=== PATIENT | female | born 1980 | race American Indian/Alaskan Native ===

== ENCOUNTER 2016-08-01 18:04 | Emergency (ER) | payer SELFPAY ==
[2016-08-01 19:50] VITALS: BP 147/91
[2016-08-01 20:32] LABS: Bilirubin,Urine NEG (Negative); Blood,Urine LG (Negative); Ketones,Urine NEG (Negative); Leukocyte Esterase,Urine SM (Negative); Mucus,Urine FEW /HPF; Nitrite,Urine NEG (Negative); Protein,Urine <15 mg/dL mg/dL (Negative); Urobilinogen,Urine < 2.0 mg/dL (<2.0)
[2016-08-01 22:21] LABS: Basophils % (Auto) 0.3 % (0.0-1.8); Eosinophils % (Auto) 0.5 % (0.0-4.3); Mean Corpuscular HGB Conc 29 % (30-34); Platelet Count 326 K/mm3 (140-440); Red Blood Count 5.34 M/mm3 (3.65-5.03); Red Cell Distribution Width 19.6 % (13.2-15.2); White Blood Count 5.9 K/mm3 (4.5-11.0)
[2016-08-01 22:23] LABS: Hematocrit 34.2 % (30.3-42.9); Mean Corpuscular Hemoglobin 19 pg (28-32); Mean Corpuscular Volume 64 fl (79-97)
[2016-08-01 22:43] LABS: Alanine Aminotransferase 8 units/L (7-56); Albumin 3.9 g/dL (3.9-5); Alkaline Phosphatase 44 units/L (35-129); Anion Gap 16 mmol/L; Bilirubin,Total 0.3 mg/dL (0.1-1.2); Blood Urea Nitrogen 9 mg/dL (7-17); Calcium 8.7 mg/dL (8.4-10.2); Carbon Dioxide 27 mmol/L (22-30); Chloride 95.7 mmol/L (98-107); Glucose 297 mg/dL (65-100); Lipase 19 units/L (13-60); Potassium 3.5 mmol/L (3.6-5.0); Sodium 135 mmol/L (137-145); Total Protein 7.8 g/dL (6.3-8.2)
== END 2016-08-01 23:40 | disposition left against medical advice (07) ==
LOC: ED 18:04
DX: O20.9 Hemorrhage in early pregnancy, unspecified (principal); O21.9 Vomiting of pregnancy, unspecified; R11.0 Nausea; J45.909 Unspecified asthma, uncomplicated; E11.9 Type 2 diabetes mellitus without complications; D64.9 Anemia, unspecified; Z3A.08 8 weeks gestation of pregnancy; Z53.21 Procedure and treatment not carried out due to patient leaving prior to being seen by health care provider
CPT/HCPCS: 36415; 80053; 81001; 82962; 83690; 84703; 85025

== ENCOUNTER 2017-06-19 23:50 | Emergency (ER) | payer SELFPAY ==
[2017-06-20 04:53] LABS: Bilirubin,Urine NEG (Negative); Blood,Urine NEG (Negative); Color,Urine Red (Yellow); Mucus,Urine FEW /HPF; Nitrite,Urine NEG (Negative); Protein,Urine <15 mg/dL mg/dL (Negative); Urobilinogen,Urine < 2.0 mg/dL (<2.0)
[2017-06-20 05:03] LABS: HCG Qualitative,Urine Negative (Negative)
[2017-06-20] MEDS ORDERED: FIORICET PO ONE (06:13)
--- NOTE | 2017-06-20 06:18 | Emergency Department Report ---
Chief Complaint: Headache Stated Complaint: KNOT ON SCALP; H/A Time Seen by Provider: 06/20/17 06:13 - HPI History of Present Illness: The [id number] female with no prior medical history presents to ED stating that she noticed not on the top of her head doesn't cause in her headaches for the past 3 days. She denies any trauma or injuries to the head. - ROS Review of Systems: As noted in HPI - Exam Vital Signs: Vital Signs 06/20/17 01:29 Temperature 98.7 F Pulse Rate 89 Blood Pressure 152/61 O2 Sat by Pulse 98 Oximetry Physical Exam: GENERAL: Alert and oriented x3, no apparent distress, Normal Gait, atraumatic. HEAD: Head is normocephalic and a-traumatic. tender mass non flactulant, non erythematous mass on the top of head on scalp. MSE screening note: Focused history and physical exam performed. Due to findings the following was ordered: ED Medical Decision Making - Medical Decision Making 37-year-old female stable, he is in no distress has no neurologic deficit CT of the head ordered. One tablet of Fioricet ordered Patient will be seen by all coming fast track provider. ED Disposition for MSE Condition: Stable Referrals: JO JOHNSON MD [Primary Care Provider] - 3-5 Days
--- NOTE | 2017-06-20 06:41 | Cat Scan Report ---
FINAL REPORT EXAM: CT HEAD/BRAIN WO CON HISTORY: scalp contusion TECHNIQUE: CT imaging acquired through the head without intravenous contrast. Transaxial reformations are provided. PRIORS: None. FINDINGS: The ventricles, cisterns and sulci are normal. No intraparenchymal or extra-axial mass, hemorrhage, or mass effect. Moreira and white-matter differentiation is normal. Normal spherical shape of the globes. Paranasal sinuses and mastoid air cells are clear. No skull or facial fracture visualized. IMPRESSION: No acute intracranial abnormality.
--- NOTE | 2017-06-20 07:32 | Emergency Department Report ---
- General Chief complaint: Headache Stated complaint: KNOT ON SCALP; H/A Time Seen by Provider: 06/20/17 06:13 Source: patient Mode of arrival: Ambulatory Limitations: No Limitations - History of Present Illness Initial comments: 37-year-old female presents with complaint of 3 days of lump on the top of her scalp. Patient denies any trauma to head. Denies any fevers or chills. States her lymph nodes may be swollen on her left posterior auricular region. States she has a palpable lump on the top of her scalp underneath her hair. Denies any other complaints. Patient was screened by mid-level provider complaint: abscess/boil Onset/Timin -: days(s) Location: head Severity: moderate Severity scale (0 -10): 4 Quality: aching Improves with: none Worsens with: none Context: none Treatments Prior to Arrival: none - Related Data Previous Rx's Medication Instructions Recorded Last Taken Type Ferrous Gluconate [Fergon 325 MG 325 mg PO TID #20 tablet 01/12/16 Unknown Rx tab] metFORMIN [Glucophage] 500 mg PO BID #60 tablet 01/12/16 Unknown Rx Cephalexin [Keflex] 500 mg PO Q12HR #14 cap 06/20/17 Unknown Rx Ibuprofen [Motrin] 800 mg PO Q8HR PRN #30 tablet 06/20/17 Unknown Rx Sulfamethoxazole/Trimethoprim 1 each PO BID #14 tablet 06/20/17 Unknown Rx [Bactrim DS TAB] Allergies Allergy/AdvReac Type Severity Reaction Status Date / Time No Known Allergies Allergy Verified 06/29/16 11:17 Abscess Boil HPI - HPI Chief Complaint: Headache Stated Complaint: KNOT ON SCALP; H/A Time Seen by Provider: 06/20/17 06:13 Home Medications: Previous Rx's Medication Instructions Recorded Last Taken Type Ferrous Gluconate [Fergon 325 MG 325 mg PO TID #20 tablet 01/12/16 Unknown Rx tab] metFORMIN [Glucophage] 500 mg PO BID #60 tablet 01/12/16 Unknown Rx Cephalexin [Keflex] 500 mg PO Q12HR #14 cap 06/20/17 Unknown Rx Ibuprofen [Motrin] 800 mg PO Q8HR PRN #30 tablet 06/20/17 Unknown Rx Sulfamethoxazole/Trimethoprim 1 each PO BID #14 tablet 06/20/17 Unknown Rx [Bactrim DS TAB] Allergies/Adverse Reactions: Allergies Allergy/AdvReac Type Severity Reaction Status Date / Time No Known Allergies Allergy Verified 06/29/16 11:17 ED Review of Systems ROS: Stated complaint: KNOT ON SCALP; H/A Other details as noted in HPI Constitutional: denies: chills, fever Eyes: denies: eye pain, eye discharge, vision change ENT: denies: ear pain, throat pain Respiratory: denies: cough, shortness of breath, wheezing Cardiovascular: denies: chest pain, palpitations Endocrine: no symptoms reported Gastrointestinal: denies: abdominal pain, nausea, diarrhea Genitourinary: denies: urgency, dysuria, discharge Musculoskeletal: denies: back pain, joint swelling, arthralgia Skin: as per HPI. denies: rash, lesions Neurological: denies: headache, weakness, paresthesias Psychiatric: denies: anxiety, depression Hematological/Lymphatic: denies: easy bleeding, easy bruising ED Past Medical Hx - Past Medical History Hx Diabetes: Yes (TYPE 2) Hx Asthma: Yes Additional medical history: ANEMIA. NEUROPATHY - Surgical History Past Surgical History?: No - Social History Smoking Status: Never Smoker Substance Use Type: None - Medications Home Medications: Home Medications Medication Instructions Recorded Confirmed Last Taken Type Ferrous Gluconate [Fergon 325 MG 325 mg PO TID #20 tablet 01/12/16 06/29/16 Unknown Rx tab] metFORMIN [Glucophage] 500 mg PO BID #60 tablet 01/12/16 06/29/16 Unknown Rx Cephalexin [Keflex] 500 mg PO Q12HR #14 cap 06/20/17 Unknown Rx Ibuprofen [Motrin] 800 mg PO Q8HR PRN #30 tablet 06/20/17 Unknown Rx Sulfamethoxazole/Trimethoprim 1 each PO BID #14 tablet 06/20/17 Unknown Rx [Bactrim DS TAB] ED Physical Exam - General Limitations: No Limitations General appearance: alert, in no apparent distress - Head Head exam: Present: atraumatic, normocephalic - Expanded Head Exam Expanded Head exam: Present: other (small abscess/cyst) 1 - 1-2 cm palpable induration here no fluctuance - Eye Eye exam: Present: normal appearance, PERRL, EOMI - ENT ENT exam: Present: mucous membranes moist - Neck Neck exam: Present: normal inspection - Respiratory Respiratory exam: Present: normal lung sounds bilaterally. Absent: respiratory distress - Cardiovascular Cardiovascular Exam: Present: regular rate, normal rhythm. Absent: systolic murmur, diastolic murmur, rubs, gallop - GI/Abdominal GI/Abdominal exam: Present: soft, normal bowel sounds - Extremities Exam Extremities exam: Present: normal inspection - Back Exam Back exam: Present: normal inspection - Neurological Exam Neurological exam: Present: alert, oriented X3 - Psychiatric Psychiatric exam: Present: normal affect, normal mood - Skin Skin exam: Present: warm, dry, intact, normal color. Absent: rash ED Course Vital Signs 06/20/17 01:29 Temperature 98.7 F Pulse Rate 89 Blood Pressure 152/61 O2 Sat by Pulse 98 Oximetry ED Medical Decision Making - Medical Decision Making A/P: Scalp cyst/abscess 1-I discussed option of aspirating or incising and draining small 1-2 cm cystic/ perhaps early abscess structure. Patient declined stated she would rather try antibiotics and anti-inflammatories before attempting incision and drainage. As abscess is small and it has only been to 3 days since symptom onset this is a reasonable alternative. I specifically advised patient to return to the ED for fevers chills nausea vomiting worsened headache or enlargement of cystic/ abscess structure. 2-CT head performed by mid-level screen patient, unremarkable 3-Motrin when necessary, Bactrim and Keflex 7 day course Critical care attestation.: If time is entered above; I have spent that time in minutes in the direct care of this critically ill patient, excluding procedure time. ED Disposition Clinical Impression: Scalp abscess Disposition: DC-01 TO HOME OR SELFCARE Is pt being admited?: No Does the pt Need Aspirin: No Condition: Stable Instructions: Abscess (ED) Prescriptions: Cephalexin [Keflex] 500 mg PO Q12HR #14 cap Ibuprofen [Motrin] 800 mg PO Q8HR PRN #30 tablet PRN Reason: Pain Sulfamethoxazole/Trimethoprim [Bactrim DS TAB] 1 each PO BID #14 tablet Referrals: [facility] [Outside] - 3-5 Days [facility] [Outside] - 3-5 Days Forms: Accompanied Note, Work/School Release Form(ED) Time of Disposition: 07:33
[2017-06-20 07:54] VITALS: BP 119/75
== END 2017-06-20 07:52 | disposition home or self-care (01) ==
LOC: ED 23:50
DX: L02.811 Cutaneous abscess of head [any part, except face] (principal); E11.40 Type 2 diabetes mellitus with diabetic neuropathy, unspecified
CPT/HCPCS: 70450; 81001; 81025; 99284

== ENCOUNTER 2017-06-28 15:13 | Emergency (ER) | payer SELFPAY ==
[2017-06-28 15:29] VITALS: BP 128/87
[2017-06-28] MEDS ORDERED: NACL 0.9% 1000 ML 1,000 ML IV ONE (17:04)
[2017-06-28] MEDS ORDERED: TORADOL IV ONE (17:04)
[2017-06-28] MEDS ORDERED: ZOFRAN IV ONE (17:04)
--- NOTE | 2017-06-28 17:10 | Emergency Department Report ---
Blank Doc - Documentation Documentation: Patient is a 37-year-old [place] female with diabetes who is presenting with pain at the bridge of the nose for the last several days. Patient states the pain is worse when she bends forward. Patient also states she's had some mild fatigue and generalized headache for the last several days but sugar was almost 400. Patient will be given IV fluids patient most likely has a ethmoid sinus infection she is on Bactrim and Keflex currently for a abscess in the hairline these medications may possibly be changed to Augmentin which covers her sinuses
--- NOTE | 2017-06-28 19:27 | Emergency Department Report ---
ED Headache HPI - General Chief Complaint: Headache Stated Complaint: HEADACHES Time Seen by Provider: 06/28/17 16:50 - History of Present Illness Initial Comments: Patient is a 37-year-old [place] Citizen female who is presenting with ethmoid sinus pain and tenderness for the past 2-3 days. Patient states is better when she lays flat is worse when she puts her head forward some pressure sensation. 6 out of 10 in severity. Patient also has noticed some mild weakness and dizziness. Patient is diabetic and blood sugar was elevated on arrival. Allergies/Adverse Reactions: Allergies No Known Allergies Allergy (Verified 06/29/16 11:17) Home Medications: Ambulatory Orders Ferrous Gluconate [Fergon 325 MG tab] 325 mg PO TID #20 tablet 01/12/16 metFORMIN [Glucophage] 500 mg PO BID #60 tablet 01/12/16 Cephalexin [Keflex] 500 mg PO Q12HR #14 cap 06/20/17 Ibuprofen [Motrin] 800 mg PO Q8HR PRN #30 tablet 06/20/17 Sulfamethoxazole/Trimethoprim [Bactrim DS TAB] 1 each PO BID #14 tablet Amoxicillin/Potassium Clav [Augmentin 875-125 Tablet] 1 each PO TID #21 tablet 06/28/17 HYDROcodone/APAP 5-325 [[place] 5/325] 1 each PO Q6HR PRN #12 tablet 06/28/17 ED Review of Systems ROS: Stated complaint: HEADACHES Other details as noted in HPI Comment: All other systems reviewed and negative ED Past Medical Hx - Past Medical History Hx Diabetes: Yes (TYPE 2) Hx Asthma: Yes Additional medical history: ANEMIA. NEUROPATHY - Social History Smoking Status: Never Smoker Substance Use Type: None - Medications Home Medications: Home Medications Medication Instructions Recorded Confirmed Last Taken Type Ferrous Gluconate [Fergon 325 MG 325 mg PO TID #20 tablet 01/12/16 06/29/16 Unknown Rx tab] metFORMIN [Glucophage] 500 mg PO BID #60 tablet 01/12/16 06/29/16 Unknown Rx Cephalexin [Keflex] 500 mg PO Q12HR #14 cap 06/20/17 Unknown Rx Ibuprofen [Motrin] 800 mg PO Q8HR PRN #30 tablet 06/20/17 Unknown Rx Sulfamethoxazole/Trimethoprim 1 each PO BID #14 tablet 06/20/17 Unknown Rx [Bactrim DS TAB] Amoxicillin/Potassium Clav 1 each PO TID #21 tablet 06/28/17 Unknown Rx [Augmentin 875-125 Tablet] HYDROcodone/APAP 5-325 [[place] 1 each PO Q6HR PRN #12 tablet 06/28/17 Unknown Rx 5/325] ED Physical Exam - General Limitations: No Limitations General appearance: alert, in no apparent distress - Head Head exam: Present: atraumatic, normocephalic, other (patient has tenderness at the ethmoid sinus area) - Eye Eye exam: Present: normal appearance - ENT ENT exam: Present: mucous membranes moist - Neck Neck exam: Present: normal inspection - Respiratory Respiratory exam: Present: normal lung sounds bilaterally. Absent: respiratory distress - Cardiovascular Cardiovascular Exam: Present: regular rate, normal rhythm. Absent: systolic murmur, diastolic murmur, rubs, gallop - GI/Abdominal GI/Abdominal exam: Present: soft, normal bowel sounds - Extremities Exam Extremities exam: Present: normal inspection - Back Exam Back exam: Present: normal inspection - Neurological Exam Neurological exam: Present: alert, oriented X3 - Psychiatric Psychiatric exam: Present: normal affect, normal mood - Skin Skin exam: Present: warm, dry, intact, normal color. Absent: rash ED Course Vital Signs 06/28/17 15:23 Temperature 97.9 F Pulse Rate 97 H Respiratory 20 Rate Blood Pressure 128/87 O2 Sat by Pulse 100 Oximetry ED Medical Decision Making - Medical Decision Making Patient's blood sugar was closed with 400 she was given a liter of normal saline. Patient does not have any signs and symptoms of DKA and does not have any ketones on her breath. Patient obese put on Augmentin and will be discharged home pain meds. Critical care attestation.: If time is entered above; I have spent that time in minutes in the direct care of this critically ill patient, excluding procedure time. ED Disposition Clinical Impression: Hyperglycemia Sinusitis Qualifiers: Sinusitis location: ethmoidal Chronicity: acute Recurrence: non-recurrent Qualified Code(s): J01.20 - Acute ethmoidal sinusitis, unspecified Disposition: - TO HOME OR SELFCARE Is pt being admited?: No Does the pt Need Aspirin: No Condition: Stable Instructions: Sinusitis (ED) Prescriptions: Amoxicillin/Potassium Clav [Augmentin 875-125 Tablet] 1 each PO TID #21 tablet HYDROcodone/APAP 5-325 [[place] 5/325] 1 each PO Q6HR PRN #12 tablet PRN Reason: Pain Referrals: PRIMARY CARE,MD [Primary Care Provider] - 3-5 Days
== END 2017-06-28 19:40 | disposition home or self-care (01) ==
LOC: ED 15:13
DX: E11.65 Type 2 diabetes mellitus with hyperglycemia (principal); J01.90 Acute sinusitis, unspecified; J45.909 Unspecified asthma, uncomplicated
CPT/HCPCS: 82962; 96361; 96374; 96375; 99283; J1885; J2405; J7030

== ENCOUNTER 2017-09-07 17:51 | Emergency (ER) | payer SELFPAY ==
[2017-09-07] MEDS ORDERED: DUONEB *Not for PRN Use IH ONE (20:32)
--- NOTE | 2017-09-07 20:36 | Emergency Department Report ---
Minor Respiratory - HPI Chief Complaint: Dyspnea/Respdistress Stated Complaint: COUGH/ MARC Time Seen by Provider: 09/07/17 20:32 Duration: 2 Days Severity: moderate Minor Respiratory: Yes Rhinorrhea, Yes Sore Throat, Yes Able to Tolerate Fluids , Yes Cough, Yes Shortness of Breath, Yes Fever, No Ear Pain, No Sick Contacts, No Hemoptysis, No Chest Pain Other History: Pt reports fever, cough, shortness of breath, congestion x 2 days. Denies CP. Tmax 100.4. ED Review of Systems ROS: Stated complaint: COUGH/ MARC Other details as noted in HPI Comment: All other systems reviewed and negative Constitutional: fever. denies: chills Eyes: denies: eye pain, eye discharge, vision change ENT: throat pain, congestion. denies: ear pain Respiratory: cough, shortness of breath. denies: wheezing Cardiovascular: denies: chest pain, palpitations Endocrine: no symptoms reported Gastrointestinal: denies: abdominal pain, nausea, diarrhea Genitourinary: denies: urgency, dysuria, discharge Musculoskeletal: denies: back pain, joint swelling, arthralgia Skin: denies: rash, lesions Neurological: denies: headache, weakness, paresthesias Psychiatric: denies: anxiety, depression Hematological/Lymphatic: denies: easy bleeding, easy bruising ED Past Medical Hx - Past Medical History Hx Diabetes: Yes (TYPE 2) Hx Asthma: Yes Additional medical history: ANEMIA. NEUROPATHY - Surgical History Past Surgical History?: No - Social History Smoking Status: Never Smoker Substance Use Type: None - Medications Home Medications: Home Medications Medication Instructions Recorded Confirmed Last Taken Type Ferrous Gluconate [Fergon 325 MG 325 mg PO TID #20 tablet 01/12/16 06/29/16 Unknown Rx tab] metFORMIN [Glucophage] 500 mg PO BID #60 tablet 01/12/16 06/29/16 Unknown Rx ALBUTEROL Inhaler [ProAir HFA 2 puff IH QID PRN #200 inhalation 09/07/17 Unknown Rx Inhaler] ALBUTEROL NEB's [Proventil 0.083% 2.5 mg IH QID PRN #25 neb 09/07/17 Unknown Rx NEBS] Azithromycin [Zithromax] 250 mg PO DAILY #6 tablet 09/07/17 Unknown Rx predniSONE [Deltasone] 40 mg PO QDAY #10 tab 09/07/17 Unknown Rx Minor Respiratory Exam - Exam General: Vital signs noted. No distress. Alert and acting appropriately. HEENT: Yes Pharyngeal Erythema, Yes Moist Mucous Membranes, Yes Rhinorrhea, No Pharyngeal Exudates, No Conjuctival Injection, No Frontal Tenderness, No Maxillary Tenderness Ear: Neither TM Bulge, Neither TM Erythema, Neither EAC Pain, Neither EAC Discharge Neck: Yes Supple, No Adenopathy Lungs: Yes Good Air Exchange, Yes Wheezes, No Ronchi, No Stridor, No Cough, No Labored Respirations, No Retractions, No Use of Accessory Muscles, No Other Abnormal Lung Sounds Heart: Yes Regular, No Murmur Abdomen: Yes Normal Bowel Sounds, No Tenderness, No Peritoneal Signs Skin: No Rash, No Edema Neurologic: Alert and oriented, no deficits. Musculoskeletal: Unremarkable. ED Course Vital Signs 09/07/17 17:59 Temperature 99.3 F Pulse Rate 124 H Blood Pressure 134/87 O2 Sat by Pulse 98 Oximetry - Reevaluation(s) Reevaluation #1: 09/07/17 22:37 Feeling better with nebs. VSS. Stable for d/c. ED Medical Decision Making - Radiology Data Radiology results: image reviewed interpreted by me: LLL infiltrate vs atelectasis. - Medical Decision Making Pt presents with cough, congestion, fever x 3 days. CXR shows possible infiltrate vs linear atelectasis. Will treat with abx, steroid. Given IM Solu- Medrol and Rocephin here as well as Duoneb. Return precautions given. - Differential Diagnosis PNA, influenza, asthma, bronchitis. Critical care attestation.: If time is entered above; I have spent that time in minutes in the direct care of this critically ill patient, excluding procedure time. ED Disposition Clinical Impression: Lower respiratory tract infection Disposition: DC-01 TO HOME OR SELFCARE Is pt being admited?: No Condition: Good Instructions: Community-acquired Pneumonia (ED) Prescriptions: ALBUTEROL Inhaler [ProAir HFA Inhaler] 2 puff IH QID PRN #200 inhalation PRN Reason: Shortness Of Breath ALBUTEROL NEB's [Proventil 0.083% NEBS] 2.5 mg IH QID PRN #25 neb PRN Reason: Wheezing Azithromycin [Zithromax] 250 mg PO DAILY #6 tablet predniSONE [Deltasone] 40 mg PO QDAY #10 tab Referrals: CANDIDA HUGHES MD [Staff Physician] - 3-5 Days Time of Disposition: 22:37
[2017-09-07] MEDS ORDERED: ROCEPHIN IM ONE (21:43)
[2017-09-07] MEDS ORDERED: XYLOCAINE 1% MPF 5 mL INFILTRATI ONE (21:43)
[2017-09-07 22:30] VITALS: BP 138/82
--- NOTE | 2017-09-07 22:33 | XRay Report ---
FINAL REPORT PROCEDURE: XR CHEST ROUTINE 2V TECHNIQUE: PA and lateral chest radiographs were obtained. CPT 39689 HISTORY: cough and fever COMPARISON: No prior studies are available for comparison. FINDINGS: Heart: Normal. Mediastinum/Vessels: Normal. Lungs/Pleural space: Plate atelectatic changes noted in the left lower lobe. There are no confluent infiltrates or mass lesions. Pleural spaces are clear.. Bony thorax: No acute osseous abnormality. Other: IMPRESSION: No acute pulmonary process.
== END 2017-09-07 22:57 | disposition home or self-care (01) ==
LOC: ED 17:51
DX: J22 Unspecified acute lower respiratory infection (principal); E11.40 Type 2 diabetes mellitus with diabetic neuropathy, unspecified
CPT/HCPCS: 71046; 96372; 99283; J0696; J2930

== ENCOUNTER 2017-09-09 01:01 | Inpatient (IN) | payer OTHER ==
[2017-09-09 02:20] LABS: Basophils % (Auto) 0.2 % (0.0-1.8); Lymphocytes # (Auto) 0.7 K/mm3 (1.2-5.4); Lymphocytes % (Auto) 16.4 % (13.4-35.0); Mean Corpuscular HGB Conc 30 % (30-34); Monocytes # (Auto) 0.3 K/mm3 (0.0-0.8); Monocytes % (Auto) 6.3 % (0.0-7.3); Platelet Count 308 K/mm3 (140-440); Red Cell Distribution Width 18.7 % (13.2-15.2)
[2017-09-09] MEDS ORDERED: ATROVENT IH ONE (02:33)
[2017-09-09] MEDS ORDERED: PROVENTIL IH ONE (02:33)
[2017-09-09 02:39] LABS: Hemoglobin 10.3 gm/dl (10.1-14.3); Mean Corpuscular Hemoglobin 20 pg (28-32); Mean Corpuscular Volume 65 fl (79-97)
[2017-09-09 02:43] LABS: BUN/Creatinine Ratio 30; Blood Urea Nitrogen 12 mg/dL (7-17); Calcium 9.3 mg/dL (8.4-10.2); Hemolysis Index 21
[2017-09-09] MEDS ORDERED: NACL 0.9% 1000 ML 1,000 ML IV ONE (02:54)
--- NOTE | 2017-09-09 02:58 | Emergency Department Report ---
ED Shortness of Breath HPI - General Chief Complaint: Dyspnea/Respdistress Stated Complaint: MARC Time Seen by Provider: 09/09/17 01:50 Source: patient, EMS Mode of arrival: Stretcher Limitations: No Limitations - History of Present Illness Initial Comments: 37-year-old female with a past medical history asthma, diabetes, anemia, neuropathy presents to the hospital with complains of continued shortness of breath and wheezing. Symptoms worsening the past 3 days. Positive dry cough. Fever of 102 at home. Patient was seen here yesterday for similar symptoms. Cxr showed pneumonia vs atlectasis. Patient is taking the prescribed azithromycin, prednisone, and nebulized treatment without improvement. Symptoms worsened tonight. Patient received albuterol, Solu-Medrol, and magnesium prior to arrival with some improvement but persistent wheezing. No previous history of intubations. No PMD or lath hand. - Related Data Previous Rx's Medication Instructions Recorded Last Taken Type RX: Ferrous Gluconate [Fergon 325 325 mg PO TID #20 tablet 01/12/16 Unknown Rx MG tab] RX: metFORMIN [Glucophage] 500 mg PO BID #60 tablet 01/12/16 Unknown Rx Azithromycin [Zithromax] 250 mg PO DAILY #6 tablet 09/07/17 Unknown Rx RX: ALBUTEROL Inhaler [ProAir HFA 2 puff IH QID PRN #200 inhalation 09/07/17 Unknown Rx Inhaler] RX: ALBUTEROL NEB's [Proventil 2.5 mg IH QID PRN #25 neb 09/07/17 Unknown Rx 0.083% NEBS] RX: predniSONE [Deltasone] 40 mg PO QDAY #10 tab 09/07/17 Unknown Rx Allergies Allergy/AdvReac Type Severity Reaction Status Date / Time No Known Allergies Allergy Verified 06/29/16 11:17 ED Review of Systems ROS: Stated complaint: MARC Other details as noted in HPI Comment: All other systems reviewed and negative ED Past Medical Hx - Past Medical History Previous Medical History?: Yes Hx Diabetes: Yes (TYPE 2) Hx Asthma: Yes Additional medical history: ANEMIA. NEUROPATHY - Surgical History Past Surgical History?: No - Social History Smoking Status: Never Smoker Substance Use Type: None - Medications Home Medications: Home Medications Medication Instructions Recorded Confirmed Last Taken Type RX: Ferrous Gluconate [Fergon 325 325 mg PO TID #20 tablet 01/12/16 06/29/16 Unknown Rx MG tab] RX: metFORMIN [Glucophage] 500 mg PO BID #60 tablet 01/12/16 06/29/16 Unknown Rx Azithromycin [Zithromax] 250 mg PO DAILY #6 tablet 09/07/17 Unknown Rx RX: ALBUTEROL Inhaler [ProAir HFA 2 puff IH QID PRN #200 inhalation 09/07/17 Unknown Rx Inhaler] RX: ALBUTEROL NEB's [Proventil 2.5 mg IH QID PRN #25 neb 09/07/17 Unknown Rx 0.083% NEBS] RX: predniSONE [Deltasone] 40 mg PO QDAY #10 tab 09/07/17 Unknown Rx ED Physical Exam - General Limitations: No Limitations - Other Other exam information: General: No limitations, patient is alert in no acute distress Head exam: Atraumatic, normocephalic Eyes exam: Normal appearance, pupils equal reactive to light, extraocular movements intact ENT: Moist mucous membrane, normal oropharynx Neck exam: Normal inspection, full range of motion, no meningismus nontender Respiratory exam: Bilateral expiratory wheezing, no tachypnea or accessory muscle use Cardiovascular: Normal rate and rhythm, normal heart sounds Abdomen: Soft, nondistended, and nontender, with normal bowel sounds, no rebound, or guarding Extremity: Full range of motion normal inspection no deformity, no calf tenderness or edema Back: Normal Inspection, full range of motion, no tenderness Neurologic: Alert, oriented x3, cranial nerves intact, no motor or sensory deficit Psychiatric: normal affect, normal mood Skin: Warm, dry, intact ED Course Vital Signs 09/09/17 09/09/17 09/09/17 01:44 02:00 02:35 Temperature 98.1 F Pulse Rate 81 86 Pulse Rate [ 87 Posterior Bilateral Throughout] Respiratory 14 14 Rate Respiratory 18 Rate [Posterior Bilateral Throughout] Blood Pressure 126/73 138/57 Blood Pressure 126/73 [Left] O2 Sat by Pulse 95 97 Oximetry - Reevaluation(s) Reevaluation #1: 09/09/17 02:58 Additional albuterol and Atrovent provided in the ED for persistent wheezing ED Medical Decision Making - Lab Data Result diagrams: 09/09/17 02:08 09/09/17 02:08 Lab Results 09/09/17 09/09/17 09/09/17 Range/Units 02:08 02:08 02:08 WBC 4.1 L (4.5-11.0) K/mm3 RBC 5.20 H (3.65-5.03) M/mm3 Hgb 10.3 (10.1-14.3) gm/dl Hct 34.0 (30.3-42.9) % MCV 65 L (79-97) fl MCH 20 L (28-32) pg MCHC 30 (30-34) % RDW 18.7 H (13.2-15.2) % Plt Count 308 (140-440) K/mm3 Lymph % (Auto) 16.4 (13.4-35.0) % [place] % (Auto) 6.3 (0.0-7.3) % Eos % (Auto) 0.0 (0.0-4.3) % Baso % (Auto) 0.2 (0.0-1.8) % Lymph # 0.7 L (1.2-5.4) K/mm3 [place] # 0.3 (0.0-0.8) K/mm3 Eos # 0.0 (0.0-0.4) K/mm3 Baso # 0.0 (0.0-0.1) K/mm3 Seg Neutrophils % 77.1 H (40.0-70.0) % Seg Neutrophils # 3.2 (1.8-7.7) K/mm3 Sodium 132 L (137-145) mmol/L Potassium 4.4 (3.6-5.0) mmol/L Chloride 92.1 L (98-107) mmol/L Carbon Dioxide 23 (22-30) mmol/L Anion Gap 21 mmol/L BUN 12 (7-17) mg/dL Creatinine 0.4 L (0.7-1.2) mg/dL Estimated GFR > 60 ml/min BUN/Creatinine Ratio 30 % Calcium 9.3 (8.4-10.2) mg/dL NT-Pro-B Natriuret Pep 8.11 (0-450) pg/mL HCG, Qual Negative (Negative) - Medical Decision Making Plan to admit patient to the hospital for persistent wheezing despite outpatient treatment. She did take her antibiotic and medications today. NS and Regular insulin initiated for hyperglycemia, no signs of dka - Differential Diagnosis asthma, bronchitis, pneumonia Critical Care Time: No Critical care attestation.: If time is entered above; I have spent that time in minutes in the direct care of this critically ill patient, excluding procedure time. ED Disposition Clinical Impression: Asthmatic bronchitis with exacerbation, Diabetes mellitus with hyperglycemia Disposition: OP ADMIT IP TO THIS HOSP Is pt being admited?: Yes Condition: Stable Time of Disposition: 02:55 (Dr Clarke/hospitalist)
[2017-09-09] MEDS ORDERED: HumuLIN R IV ONE (03:11)
[2017-09-09] MEDS ORDERED: D50W (25GM) Syringe IV PRN (03:56)
[2017-09-09] MEDS ORDERED: TYLENOL PO PRN (03:59)
[2017-09-09] MEDS: HEPARIN SUB-Q SCH ×2 (04:59→21:24)
[2017-09-09] MEDS: GLUCOPHAGE PO SCH ×2 (08:15→18:09)
[2017-09-09] MEDS: ROBITUSSIN PO PRN ×2 (08:15→18:09)
[2017-09-09] MEDS: HumuLIN R SUB-Q SCH ×5 (08:16→21:40)
--- NOTE | 2017-09-09 08:25 | History and Physical Report ---
CHIEF COMPLAINT: Difficulty in breathing. HISTORY OF PRESENT ILLNESS: The patient is a 37-year-old female with past history of asthma, diabetes mellitus, anemia, and neuropathy, presenting with shortness of breath and wheezing going on for about 2-3 days. There is also history of fever. The patient was seen in the hospital a day prior to presentation with similar symptoms. She had an x-ray done, which was read as atelectasis versus pneumonia and the patient was placed on Zithromax and prednisone with nebulizer. Sent home but kept having the symptoms without improvement until the symptoms got worse yesterday. Then the patient presented for reevaluation. There is no history of nausea or vomiting. No history of chest pain. Past Medical History: The patient's past medical history is significant for asthma, diabetes mellitus, anemia, neuropathy. PAST SURGICAL HISTORY: Unremarkable. FAMILY HISTORY: Family history is noncontributory. SOCIAL HISTORY: The patient does not smoke, does not drink alcohol and does not use illicit drugs. MEDICATIONS: The patient is on the ferrous gluconate 325 mg by mouth 3 times daily, metformin 500 mg by mouth twice daily, Zithromax 250 mg by mouth daily, albuterol inhaler 2 puffs inhalation q.i.d. and albuterol nebulizer 2.5 mg t.i.d., prednisone 40 mg by mouth daily. ALLERGIES: There are no known drug allergies. REVIEW OF SYSTEMS: CONSTITUTIONAL: There is fever with no chills, no diaphoresis. HEENT: There is no headache or sore throat. CARDIOVASCULAR: There is no chest pain or orthopnea. RESPIRATORY: Shortness of breath is present. Cough present. GASTROINTESTINAL: There is no nausea, no vomiting, no abdominal pain, diarrhea or constipation. NEUROLOGIC: There is no numbness, no dizziness, no change in mental status. MUSCULOSKELETAL: There is no joint pain or swelling. DERMATOLOGICAL: There is no skin rash or itching. GENITOURINARY: There is no dysuria, hematuria or flank pain. Rest of system review is normal. PHYSICAL EXAMINATION: GENERAL: At the time of exam, the patient was sound to be alert, oriented x 3, not in acute distress. VITAL SIGNS: The patient's vital signs at initial time of presentation showed temperature of 98.1 degrees Fahrenheit, pulse of 81, respirations 14, blood pressure 126/73, O2 sat of 95% on room air. HEENT: Show to be equal, round, and reactive to light and accommodation. Extraocular muscles are intact. NECK: Supple with no JVD or carotid bruit. CARDIOVASCULAR: Showed normal first and second heart sounds with no gallops or murmurs. RESPIRATORY: Show good air entry on both sides of the lungs with mild respiratory wheezing. GASTROINTESTINAL: Show abdomen to be full, soft, nontender with no organomegaly or rigidity. NEUROLOGICAL: The shows no focal deficits. MUSCULOSKELETAL: Show no joint swelling or tenderness. DERMATOLOGICAL: Show no skin rash.. GENITOURINARY: Showing no costovertebral angle tenderness. PERTINENT LABORATORY DATA AND IMAGING STUDIES: The patient had chest x-ray done a day prior to presentation that shows atelectatic changes versus possible infiltrate. The patient had lab tests done with CBC showing a low white count of 4.1, normal hemoglobin, normal hematocrit with low MCV of 65. The patient's CBC differential showed elevated segmented neutrophil of 77%. The patient's chemistry showed low sodium of 132 with low chloride of 92 and elevated blood glucose of 519 with a negative test. Brain natriuretic peptide was normal. The patient's CO2 was normal with a value of 23 with anion gap of 17. DIAGNOSES: 1. Asthma exacerbation. 2. Left lower lobe pneumonia. 3. Diabetes mellitus with hyperglycemia. PLAN: The patient will be admitted to the medical floor and will be on albuterol nebulizer 2.5 mg by inhalation every 6 hours as needed for shortness of breath. The patient will be on IV ceftriaxone 1 gram daily and IV Zithromax 500 mg daily. The patient will also be on IV Solu-Medrol 60 mg q.8h. The patient will also be on guaifenesin 200 mg by mouth every 4 hours and DVT prophylaxis will be through heparin 5000 subcutaneously q.12h. and The patient will be on Tylenol 650 mg by mouth every 4 hours for fever and headache and will be on Accu-Chek a.c. and at bedtime, followed by low dose sliding scale using regular insulin for blood sugar above 150 mg/dL. The urethra patient will also be on oxygen by nasal cannula at 2 liter per minute and will be placed back on home medications as shown in the medication reconciliation section. JOB# [id number] OCN/NTS
--- NOTE | 2017-09-09 08:53 | Progress Note ---
Assessment and Plan Assessment and plan: Asthma exacerbation. [facility] Physical - Physical exam Narrative exam: General:Not in acute distress, lying in bed HEENT:Normocephalic, atraumatic Neck:supple,no JVD Lungs: Decreased breath sounds, bilateral rhonchi, wheeze Heart:S1 and S2 regular, no murmurs, rubs or gallop Abd: soft, non tender,non distended, normal bowel sounds Ext:no edema, no clubbing or cyanosis Neuro:Awake,alert,oriented x 3, moves all extremities, Psych:normal mood - Constitutional Vitals: Temp Pulse Resp BP Pulse Ox 97.8 F 81 18 130/71 92 09/09/17 08:02 09/09/17 08:02 09/09/17 08:02 09/09/17 08:02 09/09/17 08:02 Results - Labs CBC & Chem 7: 09/09/17 02:08 09/09/17 02:08 Labs: Laboratory Last Values WBC 4.1 K/mm3 (4.5-11.0) L 09/09/17 02:08 RBC 5.20 M/mm3 (3.65-5.03) H 09/09/17 02:08 Hgb 10.3 gm/dl (10.1-14.3) 09/09/17 02:08 Hct 34.0 % (30.3-42.9) 09/09/17 02:08 MCV 65 fl (79-97) L 09/09/17 02:08 MCH 20 pg (28-32) L 09/09/17 02:08 MCHC 30 % (30-34) 09/09/17 02:08 RDW 18.7 % (13.2-15.2) H 09/09/17 02:08 Plt Count 308 K/mm3 (140-440) 09/09/17 02:08 Lymph % (Auto) 16.4 % (13.4-35.0) 09/09/17 02:08 [place] % (Auto) 6.3 % (0.0-7.3) 09/09/17 02:08 Eos % (Auto) 0.0 % (0.0-4.3) 09/09/17 02:08 Baso % (Auto) 0.2 % (0.0-1.8) 09/09/17 02:08 Lymph # 0.7 K/mm3 (1.2-5.4) L 09/09/17 02:08 [place] # 0.3 K/mm3 (0.0-0.8) 09/09/17 02:08 Eos # 0.0 K/mm3 (0.0-0.4) 09/09/17 02:08 Baso # 0.0 K/mm3 (0.0-0.1) 09/09/17 02:08 Seg Neutrophils % 77.1 % (40.0-70.0) H 09/09/17 02:08 Seg Neutrophils # 3.2 K/mm3 (1.8-7.7) 09/09/17 02:08 Sodium 132 mmol/L (137-145) L 09/09/17 02:08 Potassium 4.4 mmol/L (3.6-5.0) 09/09/17 02:08 Chloride 92.1 mmol/L (98-107) L 09/09/17 02:08 Carbon Dioxide 23 mmol/L (22-30) 09/09/17 02:08 Anion Gap 21 mmol/L 09/09/17 02:08 BUN 12 mg/dL (7-17) 09/09/17 02:08 Creatinine 0.4 mg/dL (0.7-1.2) L 09/09/17 02:08 Estimated GFR > 60 ml/min 09/09/17 02:08 BUN/Creatinine Ratio 30 % 09/09/17 02:08 Glucose 519 mg/dL (65-100) H* 09/09/17 02:08 POC Glucose 446 (70-105) H 09/09/17 05:02 Calcium 9.3 mg/dL (8.4-10.2) 09/09/17 02:08 NT-Pro-B Natriuret Pep 8.11 pg/mL (0-450) 09/09/17 02:08 HCG, Qual Negative (Negative) 09/09/17 02:08
[2017-09-09] MEDS ORDERED: ROCEPHIN/NS 1 GM/50 ML 1 GM/50 ML BAG IV SCH (10:00)
[2017-09-09] MEDS ORDERED: ZITHROMAX 500 MG in NACL 0.9% 250ML 250 ML IV SCH (10:00)
[2017-09-09] MEDS: cefTRIAXone 1 GM in NACL 0.9% 20 ML IV SCH (10:41)
[2017-09-09] MEDS: NACL 0.9% 1000 ML 1,000 ML IV SCH (13:23)
--- NOTE | 2017-09-09 13:40 | Event Note ---
Date: 09/09/17 Patient is 37 yo with asthma exacerbation. I have seen and examnined her. Continue solumedrol, Albuterol nebs.
[2017-09-09] MEDS: PROVENTIL IH PRN ×2 (14:46→23:17)
[2017-09-09] MEDS ORDERED: HumuLIN R SUB-Q SCH (22:00)
[2017-09-10] MEDS: NACL 0.9% 1000 ML 1,000 ML IV SCH (04:01)
[2017-09-10] MEDS: HumuLIN R SUB-Q SCH ×3 (08:38→17:13)
--- NOTE | 2017-09-10 08:40 | Progress Note ---
Assessment and Plan Assessment and plan: Asthma exacerbation. Continue solumedrol, Duoneb, Albuterol Diabetes melllitus type 2, uncontrolled. Increase Novolin 70/30 to 16 Units bid patient will need Insulin on discharge since A1C is 14.7 Diabetic neuropathy. DVT prophylaxis with heparin. Full code status. History Interval history: Still has shortness of breath, still wheezing Hospitalist Physical - Physical exam Narrative exam: General:Not in acute distress, lying in bed,obese HEENT:Normocephalic, atraumatic Neck:supple,no JVD Lungs: Decreased breath sounds, bilateral rhonchi, wheeze Heart:S1 and S2 regular, no murmurs, rubs or gallop Abd: soft, non tender,non distended, normal bowel sounds Ext:no edema, no clubbing or cyanosis Neuro:Awake,alert,oriented x 3, moves all extremities, Psych:normal mood - Constitutional Vitals: Temp Pulse Resp BP Pulse Ox 98.4 F 66 16 131/67 93 09/10/17 07:30 09/10/17 07:30 09/10/17 07:30 09/10/17 07:30 09/10/17 07:30 Results - Labs CBC & Chem 7: 09/09/17 02:08 09/09/17 02:08 Labs: Laboratory Last Values WBC 4.1 K/mm3 (4.5-11.0) L 09/09/17 02:08 RBC 5.20 M/mm3 (3.65-5.03) H 09/09/17 02:08 Hgb 10.3 gm/dl (10.1-14.3) 09/09/17 02:08 Hct 34.0 % (30.3-42.9) 09/09/17 02:08 MCV 65 fl (79-97) L 09/09/17 02:08 MCH 20 pg (28-32) L 09/09/17 02:08 MCHC 30 % (30-34) 09/09/17 02:08 RDW 18.7 % (13.2-15.2) H 09/09/17 02:08 Plt Count 308 K/mm3 (140-440) 09/09/17 02:08 Lymph % (Auto) 16.4 % (13.4-35.0) 09/09/17 02:08 [place] % (Auto) 6.3 % (0.0-7.3) 09/09/17 02:08 Eos % (Auto) 0.0 % (0.0-4.3) 09/09/17 02:08 Baso % (Auto) 0.2 % (0.0-1.8) 09/09/17 02:08 Lymph # 0.7 K/mm3 (1.2-5.4) L 09/09/17 02:08 [place] # 0.3 K/mm3 (0.0-0.8) 09/09/17 02:08 Eos # 0.0 K/mm3 (0.0-0.4) 09/09/17 02:08 Baso # 0.0 K/mm3 (0.0-0.1) 09/09/17 02:08 Seg Neutrophils % 77.1 % (40.0-70.0) H 09/09/17 02:08 Seg Neutrophils # 3.2 K/mm3 (1.8-7.7) 09/09/17 02:08 Sodium 132 mmol/L (137-145) L 09/09/17 02:08 Potassium 4.4 mmol/L (3.6-5.0) 09/09/17 02:08 Chloride 92.1 mmol/L (98-107) L 09/09/17 02:08 Carbon Dioxide 23 mmol/L (22-30) 09/09/17 02:08 Anion Gap 21 mmol/L 09/09/17 02:08 BUN 12 mg/dL (7-17) 09/09/17 02:08 Creatinine 0.4 mg/dL (0.7-1.2) L 09/09/17 02:08 Estimated GFR > 60 ml/min 09/09/17 02:08 BUN/Creatinine Ratio 30 % 09/09/17 02:08 Glucose 519 mg/dL (65-100) H* 09/09/17 02:08 POC Glucose 290 (70-105) H 09/09/17 21:25 Hemoglobin A1c 14.7 % (4-6) H 09/09/17 02:08 Calcium 9.3 mg/dL (8.4-10.2) 09/09/17 02:08 NT-Pro-B Natriuret Pep 8.11 pg/mL (0-450) 09/09/17 02:08 HCG, Qual Negative (Negative) 09/09/17 02:08
[2017-09-10] MEDS: PROVENTIL IH PRN (09:50)
[2017-09-10] MEDS ORDERED: ZITHROMAX PO SCH (10:00)
[2017-09-10] MEDS: ROBITUSSIN PO PRN ×2 (10:06→17:12)
[2017-09-10] MEDS: HEPARIN SUB-Q SCH (10:08)
[2017-09-10] MEDS: GLUCOPHAGE PO SCH ×2 (10:08→17:12)
[2017-09-10] MEDS: cefTRIAXone 1 GM in NACL 0.9% 20 ML IV SCH (10:09)
[2017-09-10] MEDS ORDERED: PROVENTIL IH PRN (14:39)
[2017-09-10] MEDS: PROVENTIL IH SCH ×2 (15:00→21:09)
[2017-09-10 21:29] VITALS: BP 119/57
[2017-09-11] MEDS: HumuLIN R SUB-Q SCH (00:30)
[2017-09-11] MEDS: HEPARIN SUB-Q SCH (00:31)
[2017-09-11] MEDS: PROVENTIL IH SCH (01:39)
== END 2017-09-11 04:33 | disposition left against medical advice (07) | DRG 203 ==
LOC: ED 01:01 → 3A 03:54
PROVIDERS: ADMIT Internal Medicine; ATTEND Internal Medicine
DX: J45.901 Unspecified asthma with (acute) exacerbation (principal); E11.65 Type 2 diabetes mellitus with hyperglycemia; D64.9 Anemia, unspecified; E11.40 Type 2 diabetes mellitus with diabetic neuropathy, unspecified; Z79.84 Long term (current) use of oral hypoglycemic drugs
CPT/HCPCS: 36415; 80048; 82962; 83036; 83880; 84703; 85025; 87040; 94640; 94644; 94760; 96360; J0456; J0696; J1644; J1815; J2930; J7030; J7050